=== PATIENT | female | born 1960 | race Caucasian/White ===

== ENCOUNTER 2020-03-15 08:58 | Outpatient (REF) | payer BC, SELFPAY ==
--- NOTE | 2020-03-15 09:03 | MM_ITS ---
EXAMINATION: MM SCREENING DIGITAL BREAST TOMOSYNTHESIS, BILATERAL CLINICAL INFORMATION: Screening. Asymptomatic. The lifetime risk of breast cancer based on the Tyrer-Cuzick Model is 7%. COMPARISON: Mammography: 03/10/2019, 03/08/2018 TECHNIQUE: Digital breast tomosynthesis is performed in both the craniocaudal and mediolateral oblique views along with computer-aided detection (CAD). Synthesized 2D images are generated from the tomosynthesis. Additional exaggerated left CC view is provided. FINDINGS: The breasts are heterogeneously dense, which may obscure small masses (ACR BI-RADS breast composition Category c). There are no significant masses, abnormal calcifications, or other abnormalities. No significant changes. MM/MM tomosynthesis screening BI IMPRESSION: No mammographic evidence of malignancy. ASSESSMENT: BI-RADS 1: Negative RECOMMENDATION: Routine annual mammography screening. This patient's information was entered into a reminder system with a target due date for their next mammogram.
== END 2020-03-15 08:59 | disposition home or self-care (01) ==
LOC: HO.MAMMO 08:58
PROVIDERS: PCP Internal Medicine; Visit Provider Internal Medicine
DX: Z12.31 Encounter for screening mammogram for malignant neoplasm of breast (principal)
CPT/HCPCS: 77063; 77067

== ENCOUNTER 2021-03-18 07:57 | Outpatient (REF) | payer BC, SELFPAY ==
--- NOTE | ~2021-03-18 | MM_ITS ---
EXAMINATION: MM SCREENING DIGITAL BREAST TOMOSYNTHESIS, BILATERAL CLINICAL INFORMATION: Screening. Asymptomatic. The lifetime risk of breast cancer based on the Tyrer-Cuzick Model is 8%. COMPARISON: Mammography: 03/15/2020, 03/10/2019, 03/08/2018, 02/11/2017 TECHNIQUE: Digital breast tomosynthesis is performed in both the craniocaudal and mediolateral oblique views along with computer-aided detection (CAD). Synthesized 2D images are generated from the tomosynthesis. FINDINGS: The breasts are heterogeneously dense, which may obscure small masses (ACR BI-RADS breast composition Category c). Parenchymal pattern is similar to prior studies. There is no developing density or interval mass or architectural abnormality. There are punctate round calcifications mid 12:00 left breast similar to prior studies. The axillary and skin contours are unremarkable. MM/MM tomosynthesis screening BI IMPRESSION: No significant changes from prior exams. ASSESSMENT: BI-RADS 2: Benign RECOMMENDATION: Routine annual mammography screening. This patient's information was entered into a reminder system with a target due date for their next mammogram.
== END 2021-03-18 07:58 | disposition home or self-care (01) ==
LOC: HO.MAMMO 07:57
PROVIDERS: PCP Internal Medicine; Visit Provider Internal Medicine
DX: Z12.31 Encounter for screening mammogram for malignant neoplasm of breast (principal)
CPT/HCPCS: 77063; 77067

== ENCOUNTER 2021-11-12 06:06 | Outpatient (REF) | payer BC, SELFPAY ==
[2021-11-12 06:14] LABS: MANUAL DIFF FLAG NO
[2021-11-12 07:27] LABS: Basophils Absolute Auto 0.1 X10*3/uL (0.0-0.2); Basophils Percent Auto 1.4 % (0-2); Eosinophils Absolute Auto 0.3 X10*3/uL (0.0-0.4); Eosinophils Percent Auto 5.1 % (0-4); Hematocrit 43.9 % (37.0-47.0); Hemoglobin 14.3 g/dl (12.0-16.0); Imm Gran Abs Auto 0.01 X10*3/uL (0.00-0.03); Imm Gran Pct Auto 0.2 % (0.0-0.4); Lymphocytes Absolute Auto 2.1 X10*3/uL (1.2-4.9); Lymphocytes Percent Auto 36.6 % (20-40); Mean Corpuscular HGB Conc 32.6 g/dl (31.0-35.0); Mean Corpuscular Hemoglobin 28.9 pg (27.0-33.0); Mean Corpuscular Volume 88.9 fL (80.0-98.0); Mean Platelet Volume 9.8 fL (9.4-12.3); Monocytes Absolute Auto 0.6 X10*3/uL (0.1-1.2); Monocytes Percent Auto 9.9 % (2-11); Neutrophils Absolute Auto 2.6 x10*3/uL (2.0-8.3); Neutrophils Percent Auto 46.8 % (45-73); Platelet Count 220 X10*3/uL (160-400); Red Blood Count 4.94 X10*6/uL (4.20-5.50); Red Cell Distribution Width 13.1 % (11.0-16.0); White Blood Count 5.7 X10*3/uL (4.8-10.8)
[2021-11-12 08:03] LABS: Alanine Aminotransferase 27 U/L (0-31); Albumin Level 4.5 g/dL (3.5-5.0); Alkaline Phosphatase 53 U/L (39-117); Anion Gap 12 (12-20); Aspartate Amino Transferase 17 U/L (5-31); Bilirubin Total 0.8 mg/dL (0.0-1.0); Blood Urea Nitrogen 19 mg/dL (9-16); Calcium 9.5 mg/dL (8.4-10.2); Carbon Dioxide 26 mmol/L (22-29); Chloride 107 mmol/L (96-108); Cholesterol 241 mg/dL; Estimated Glomerular Filt Rate > 60; Glucose Random 95 mg/dL (60-115); HDL Cholesterol 93 mg/dL; LDL Cholesterol Calculated 134 mg/dl; Potassium 4.1 mmol/L (3.3-5.1); Sodium 141 mmol/L (135-145); Total Protein 7.3 g/dL (6.5-8.0); Triglycerides 70 mg/dL
[2021-11-12 08:21] LABS: Thyroid Stimulating Hormone 1.02 uIU/mL (0.32-4.0); Vitamin D 25-OH Total 43.8 ng/mL (>30)
== END 2021-11-12 06:07 | disposition home or self-care (01) ==
LOC: HO.LAB 06:06
PROVIDERS: PCP Internal Medicine; Visit Provider Internal Medicine
DX: E78.00 Pure hypercholesterolemia, unspecified (principal); E55.9 Vitamin D deficiency, unspecified
CPT/HCPCS: 36415; 80053; 80061; 82306; 84443; 85025

== ENCOUNTER 2022-03-31 07:18 | Outpatient (REF) | payer BC, SELFPAY ==
--- NOTE | ~2022-03-31 | MM_ITS ---
EXAMINATION: MM SCREENING DIGITAL BREAST TOMOSYNTHESIS, BILATERAL CLINICAL INFORMATION: Screening. Asymptomatic. The lifetime risk of breast cancer based on the Tyrer-Cuzick Model is 5%. COMPARISON: Mammography: 03/18/2021, 03/15/2020, 03/10/2019, 03/08/2018, 02/11/2017 TECHNIQUE: Digital breast tomosynthesis is performed in both the craniocaudal and mediolateral oblique views along with computer-aided detection (CAD). Synthesized 2D images are generated from the tomosynthesis. FINDINGS: The breasts are heterogeneously dense, which may obscure small masses (ACR BI-RADS breast composition Category c). There are no significant masses, abnormal calcifications, or other abnormalities. There are scattered shifting fibroglandular parenchymal densities related to variation in positioning. No architectural abnormality. The axilla and skin contours are unremarkable. No significant changes. MM/MM tomosynthesis screening BI IMPRESSION: No mammographic evidence of malignancy. ASSESSMENT: BI-RADS 2: Benign RECOMMENDATION: Routine annual mammography screening. This patient's information was entered into a reminder system with a target due date for their next mammogram.
== END 2022-03-31 07:19 | disposition home or self-care (01) ==
LOC: HO.MAMMO 07:18
PROVIDERS: PCP Internal Medicine; Visit Provider Internal Medicine
DX: Z12.31 Encounter for screening mammogram for malignant neoplasm of breast (principal)
CPT/HCPCS: 77063; 77067

== ENCOUNTER 2023-04-02 07:18 | Outpatient (REF) | payer BC, SELFPAY ==
--- NOTE | ~2023-04-02 | MM_ITS ---
EXAMINATION: MM SCREENING DIGITAL BREAST TOMOSYNTHESIS, BILATERAL CLINICAL INFORMATION: Screening. Asymptomatic. COMPARISON: Mammography: 03/31/2022, 03/18/2021, 03/15/2020, 03/10/2019, 03/08/2018, 02/11/2017 TECHNIQUE: Digital breast tomosynthesis is performed in both the craniocaudal and mediolateral oblique views along with computer-aided detection (CAD). Synthesized 2D images are generated from the tomosynthesis. FINDINGS: The breasts are heterogeneously dense, which may obscure small masses (ACR BI-RADS breast composition Category c). There are punctate loosely scattered extremely fine calcifications in the 12:00 left breast, unchanged from prior exams and benign. There are no suspicious masses, suspicious grouped calcifications, or areas of architectural distortion in either breast. The parenchymal pattern is stable from prior exams. MM/MM tomosynthesis screening BI IMPRESSION: No mammographic evidence of malignancy. ASSESSMENT: BI-RADS BI-RADS 2 - Benign Findings RECOMMENDATION: Routine annual mammography screening. 1 year F/U This examination should not preclude the clinical evaluation of a suspicious palpable abnormality. This patient's information was entered into a reminder system with a target due date for their next mammogram.
== END 2023-04-02 07:19 | disposition home or self-care (01) ==
LOC: HO.MAMMO 07:18
PROVIDERS: PCP Internal Medicine; Visit Provider Internal Medicine
DX: Z12.31 Encounter for screening mammogram for malignant neoplasm of breast (principal)
CPT/HCPCS: 77063; 77067

== ENCOUNTER → 2023-04-02 07:30 | Outpatient (BNV) | payer BC, SELFPAY | PROVIDERS: PCP Internal Medicine; Visit Provider Radiology Diagnostic Radiology | DX: Z12.31 Encounter for screening mammogram for malignant neoplasm of breast (principal) | CPT/HCPCS: 77063; 77067 ==

== ENCOUNTER 2023-10-05 08:37 | Outpatient (AMB) | payer BC, SELFPAY ==
--- NOTE | 2023-10-05 08:48 | AM.OFFWIN_ITS ---
Intake Vital Signs 10/05/23 08:59 Height 5 ft 7 in Weight 123 lb 4 oz BMI 19.3 BP 110/64 Blood Pressure Location Lt brachial Position Sitting Respiration 14 Pulse 79 Pulse Source Pulse Oximeter Temp 97.9 F Temp Source Oral Pulse Oximetry (%) 98 Oxygen Delivery Method Room Air Intake Visit Reasons: Scabies Intake Note: Scabies. Spots on wrist, upper arm, abdomen. Patient Tobacco Use Status: Former Tobacco user Allergies No Known Allergies [No Known Allergies*] Allergy (Verified 10/05/23 08:58) Do you need a note to return to daycare/school/sports/work: No HPI Scabies HPI Details 63 y/o female presents today with compla ints of a rash on her wrist, upper arm, abdomen. Pt notes symptoms at night worsens. She denies anyone in her household with a rash. She reports it is itchy. HPI Comments History of Present Illness Details Documentation assistance for Antonio Sarkar MD, was provided by Nemesio Bhagat, Rib Stiffener And Heel Dipper on 10/05/2023 at 10:02 AM EST. I, Dr. Sarkar, have read, observed, and verified documentation. COUNTS INCLUDE 234 BEDS AT THE [facility] Social History Patient Tobacco Use Status: Former Tobacco user Review of Systems Const Denies chills, Denies fatigue, Denies fever(s), Denies headache(s) and Denies weakness ENT Denies dizziness and Denies headache(s) Card Denies dyspnea Resp Denies cough, Denies dyspnea, Denies wheezing and Denies other (shortness of breath) Musc Denies numbness and Denies tingling Neuro Denies dizziness, Denies headache(s), Denies numbness, Denies tingling and Denies weakness Psych Denies anxiety and Denies depression Endo Denies fatigue Aller/Immun Denies wheezing Physical Exam Vital Signs: Last Vital Signs Temp 97.9 F 10/05/23 08:59 Pulse 79 10/05/23 08:59 Resp 14 10/05/23 08:59 BP 110/64 10/05/23 08:59 Pulse Ox 98 10/05/23 08:59 Oxygen Delivery Method Room Air 10/05/23 08:59 BMI result Body Mass Index 19.3 Const General: well developed; No acute distress Nutritional Appearance: well nourished Orientation/consciousness: patient oriented x3 HEENT Head: Yes normocephalic and Yes atraumatic Eyes General: appearance normal, both eyes and all related structures Pupils: Equal, round and reactive pupils present EOM: EOMs intact bilaterally Resp Effort & Inspection: normal respiratory effort Neuro General: patient oriented x3 and gait normal Cranial nerves: Yes Equal, round and reactive pupils present Psych Affect: normal affect Assessment & Plan Assessment & Plan (1) Rash: Code(s): R21 - Rash and other nonspecific skin eruption Plan: Rash?on?anterior?wrists?and?between?fingers?and?on?hands Appears?consistent?with?scabies Sent?a?script?for?permethrin Script?for?steroid?cream?for?itch Call?or?return?to?office?if?not?improving?or?if?worsens. Medications: New permethrin 1% (Lice Killing (permethrin)) 60 mL topical ONCE 1 day 59 mL 1RF betamethasone valerate 0.1% 1 appl topical DAILY 14 days PRN 60 grams 0RF skin irritation Coding Level of Care Code New Pt Level 3 (84507) Diagnoses Rash R21
[2023-10-05 08:59] VITALS: BP 110/64; PULSE 79; RESP 14; TEMP 36.6; O2SAT 98; BMI 19.3
== END 2023-10-05 10:10 | disposition home or self-care (01) ==
PROVIDERS: PCP Internal Medicine; Visit Provider Family Medicine
DX: R21 Rash and other nonspecific skin eruption (principal)
CPT/HCPCS: 99203

== ENCOUNTER 2024-04-07 07:16 | Outpatient (REF) | payer BC, SELFPAY | END 2024-04-07 07:17 | disposition home or self-care (01) | LOC: HO.MAMMO 07:16 | PROVIDERS: PCP Internal Medicine; Visit Provider Internal Medicine | DX: Z12.31 Encounter for screening mammogram for malignant neoplasm of breast (principal) | CPT/HCPCS: 77063; 77067 ==

== ENCOUNTER → 2024-04-07 07:30 | Outpatient (BNV) | payer BC, SELFPAY | PROVIDERS: PCP Internal Medicine; Visit Provider Internal Medicine | DX: Z12.31 Encounter for screening mammogram for malignant neoplasm of breast (principal) | CPT/HCPCS: 77063; 77067 ==

== ENCOUNTER 2025-01-04 06:05 | Outpatient (REF) | payer BC, SELFPAY ==
--- OUTSIDE RECORDS SUMMARY | 2024-12-23 10:00 | XMS_ITS ---
Author Organization [facility] Address [address] [place] [address] Care Team Providers Care Strategic Analyst Name Role Phone Linwood Hudson MD Primary Care Provider Gustavo El Unavailable [phone] Allergies No Known Allergies REASON FOR VISIT Patient presents today for a colon screening Immunizations Vaccine Route Administration Date Status Comme nts Influenza Unknown 12/23/2024 Refused Social History Tobacco Use: Social History Observation Description Date Details (start date - stop date) Never Smoker NA - NA Tobacco Control (Standard) Question Answer Notes Tobacco use: Nonsmoker AUDIT-C (Standard) Question Answer Notes Did you have a drink contain ing alcohol in the past year? Yes How often did you have a dri nk containing alcohol in the past year? 2 to 4 times a month (2 points) How many drinks did you have on a typical day when you were drinking in the past year? 1 or 2 drinks (0 point) How often did you have six o r more drinks on one occasion in the past year? Never (0 point) Points 2 Interpretation Negative Problems Problem Type SNOMED Code ICD Code Onset Dates Problem Status W/U Status Risk Notes Problem Colon cancer screening (826783539) Colon cancer screening (Z12.11) Active confirmed Problem History of adenomatous polyp of colon (209834529) History of adenomatous polyp of colon (Z86.0101) Active confirmed Problem Preprocedural examination (447081639394892) Preprocedural examination (Z01.818) Active confirmed Vital Signs Temperature 97.7 degrees Fahrenheit 12/24/19 25 Blood pressure systolic 001 mm Hg 12/24/19 25 Blood pressure diastolic 01 mm Hg 08/29/2 025 Height 67 in 12/23/2024 Weight 122.4 lbs 12/23/2024 BMI 19.17 kg/m2 12/23/2024 Procedures Procedure Date Ordered Date Performed Result Body Sit e COLONOSCOPY 12/23/2024 N/A Encounters Encounter Location Date Provider Diagnosis [facility] [address] [place] [address] 12/23/2024 Gustavo Gonzalez Colon cancer screeni ng Z12.11 ; History of adenomatous polyp of colon Z86.0101 and Preprocedural examination Z01.818 Assessments Encounter Date Diagnosis (ICD Code) Assessment Notes Treatment Notes Treatment Clinical Notes Section Notes 12/23/2024 Colon cancer screening (ICD-10 - Z12.11) Overall, Vane appears well and is not having any new or worrisome GI complaints. I did recommend a follow-up colonoscopy for further screening purposes given her age, good clinical appearance, her history of tubular adenomas of the colon, her significant family history of 2 first-degree relatives with colorectal cancer, and her last colonoscopy being done over 5 years ago. Full consent has been obtained from her for the colonoscopy, including risks of bleeding and perforation. The procedure will be done with monitored anesthesia care. Vane was comfortable with this plan. Thank you again for allowing me to participate in Vane's care. I shall continue to keep you advised of her progress.. 12/23/2024 History of adenomatous polyp of colon (ICD-10 - Z86.0101) Overall, Vane appears well and is not having any new or worrisome GI complaints. I did recommend a follow-up colonoscopy for further screening purposes given her age, good clinical appearance, her history of tubular adenomas of the colon, her significant family history of 2 first-degree relatives with colorectal cancer, and her last colonoscopy being done over 5 years ago. Full consent has been obtained from her for the colonoscopy, including risks of bleeding and perforation. The procedure will be done with monitored anesthesia care. Vane was comfortable with this plan. Thank you again for allowing me to participate in Vane's care. I shall continue to keep you advised of her progress.. 12/23/2024 Preprocedural examination (ICD-10 - Z01.818) Overall, Vane appears well and is not having any new or worrisome GI complaints. I did recommend a follow-up colonoscopy for further screening purposes given her age, good clinical appearance, her history of tubular adenomas of the colon, her significant family history of 2 first-degree relatives with colorectal cancer, and her last colonoscopy being done over 5 years ago. Full consent has been obtained from her for the colonoscopy, including risks of bleeding and perforation. The procedure will be done with monitored anesthesia care. Vane was comfortable with this plan. Thank you again for allowing me to participate in Vane's care. I shall continue to keep you advised of her progress.. Plan Of Treatment Pending Test Test Name Order Date COLONOSCOPY 12/23/2024 Next Appt Details Provider Name:Gustavo Gonzalez , 04/14/2025 09:00:00 AM, [address] [place] [address], [place] [address], [place], [address], Progress Notes * HAMDESIRE TDOB: [birth year] (64 yo F)Acc No.[id number]:12/23/2024 Progress Notes Patient: Augustus RHONDADESIRE Provider: Isac Gonzalez MD :1960 A ge:64 Y S ex:Female Date:12/23/2024 Address:[address] [place], [place] [id number] Pcp:Linwood Hudson MD Subjective: * Chief Complaints: * 1 . Patient presents today for a colon screening. * HPI: i ncontinence: I saw Vane (she goes by her middle name) in the office today for evaluation of her personal history of adenomatous colon polyps and need for colorectal cancer screening. As you know, Vane is a healthy 64-year-old female who presently feels very well. She enjoys a good appetite and denies any significant heartburn or dysphagia. Her bowel movements have been regular and without any signs of bleeding. She denies any abdominal pain, jaundice, nor unintentional weight loss. Her family history is notable for a mother and sister having had colon cancer. Vane describes having had [address] Fleming. She reports that her first colonoscopy in 2009 was negative and a follow-up exam in 2019 revealed at least 1 adenomatous polyp. * Medical History: D enies [place],DM,CVA,Lung disease,renal disease, Colonoscopy 04/2019 with adenomas removed by Dr. Fleming; She also describes a negative screening colonoscopy in approximately 2009.. * Surgical History: t onsilectomy , pilonidal cyst . * Family History: F ather: . M other: , Colon cancer in her 50's, diagnosed with Colon cancer, Heart disease. Sister had colon cancer at age 75. * Social History: T obacco Use: T obacco Control (Standard) T obacco use: N onsmoker. M iscellaneous: M arital status: . 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 D rug/Alcohol: A GABRIEL-C (Standard) D id you have a drink containing alcohol in the past year? Y es,?How often did you have a drink containing alcohol in the past year? 2 to 4 times a month (2 points), H ow many drinks did you have on a typical day when you were drinking in the past year? 1 or 2 drinks (0 point), H ow often did you have six or more drinks on one occasion in the past year? N ever (0 point), P oints 2 , I nterpretation N egative. * Medications: N one * Allergies: N .K.D.A. Objective: * Vitals: W t:122.4lbs, Ht:67in, BMI:19.17Index, BP:001/01mm Hg, Temp:97.7, Ht-cm: 170.18, Wt-k.52. Assessment: * Assessment: 1. C olon cancer screening - Z12.11 (Primary) 2 . H istory of adenomatous polyp of colon - Z86.0101 3 . P reprocedural examination - Z01.818 ? Overall, Vane appears wel l and is not having any new or worrisome GI complaints. I did recommend a follow-up colonoscopy for further screening purposes given her age, good clinical appearance, her history of tubular adenomas of the colon, her significant family history of 2 first-degree relatives with colorectal cancer, and her last colonoscopy being done over 5 years ago. Full consent has been obtained from her for the colonoscopy, including risks of bleeding and perforation. The procedure will be done with monitored anesthesia care. Vane was comfortable with this plan. Thank you again for allowing me to participate in Vane's care. I shall continue to keep you advised of her progress.. Plan: * Treatment: 2.?History of adenomatous polyp of colon?Procedure: COLONOSCOPY* with MACsched for 04/14/25 a t 9:00 ammiralax * Immunizations: Influenza (Not administered - Refused: Patient decision) * Procedure Codes: 4 5378 DIAGNOSTIC COLONOSCOPY * * The named appointment provid er may or may not be the originator of this progress note, and it is not deemed complete until electronically signed by the appointment provider. Sign off status: Pending * Provider: Isac Gonzalez MD Date: 0 12/23/2024 Generated for Bailee petty/Keny/Florentinransmitting on: 0 01/04/2025 06:09 AM EDT History and Physical Notes * HPI (History of Present Illness) Category Sub-Category Detail Notes Category Not es incontinence I saw Vane (she goes by her middle name) in the office today for evaluation of her personal history of adenomatous colon polyps and need for colorectal cancer screening. As you know, Vane is a healthy 64-year-old female who presently feels very well. She enjoys a good appetite and denies any significant heartburn or dysphagia. Her bowel movements have been regular and without any signs of bleeding. She denies any abdominal pain, jaundice, nor unintentional weight loss. Her family history is notable for a mother and sister having had colon cancer. Vane describes having had [address] Fleming. She reports that her first colonoscopy in 2009 was negative and a follow-up exam in 2019 revealed at least 1 adenomatous polyp.
--- OUTSIDE RECORDS SUMMARY | 2025-01-04 06:09 | XMS_ITS | Patient Health Record ---
Author Organization [facility] Address [address] [place] [address] Care Team Providers Care Dye Tub Tender Name Role Phone Linwood Hudson MD Primary Care Provider Gustavo El Unavailable [phone] Allergies No Known Allergies Reason For Referral No Information Immunizations Vaccine Route Administration Date Status Comme [...] Status Risk Notes Problem Colon cancer screening (400996468) Colon cancer screening (Z12.11) Active confirmed Problem Preprocedural examination (055495171551966) Preprocedural examination (Z01.818) Active confirmed Problem History of adenomatous polyp of colon (953183254) History of adenomatous polyp of colon (Z86.0101) Active confirmed Vital Signs Temperature 97.7 degrees Fahrenheit 12/23/2024 Blood pressure diastolic 01 mm Hg 12/23/2024 Height 67 in 12/23/2024 Blood pressure systolic 001 mm Hg 12/23/2024 Weight 122.4 lbs 12/23/2024 BMI 19.17 kg/m2 12/23/2024 Procedures Procedure Date Ordered Date Performed Result Body Sit e COLONOSCOPY 12/23/2024 N/A Encounters Encounter Location Date Provider Diagnosis [facility] [address] [place] [address] 12/23/2024 Gustavo Gonzalez Colon cancer screeni ng [...] Provider Name:Gustavo Gonzalez , 04/14/2025 09:00:00 AM, [address] [place] [address], [address], [place], [address], Insurance Providers Payer Name Payer Address Payer Phone Subscriber Number Group Number Insured Name Patient Relationship to Insured Coverage Start Date Coverage End Date [facility] [address] [place] [address] [id number] [employer] Self - patient is the insured Medical (General) History Medical History History ICD Code Denies [place],DM,CVA,Lung disease,renal dise ase Colonoscopy 04/2019 with florian omas removed by Dr. Fleming; She also describes a negative screening colonoscopy in approximately 2009. Surgical History Surgery Date(Month/Year) pilonidal cyst tonsilectomy
--- OUTSIDE RECORDS SUMMARY | 2025-01-04 06:10 | XMS_ITS | Clinical Summary ---
Author Organization [facility] Address [address] [place] [address] Phone Care Team Providers Care Event Specialist Product Demonstrator Name Role Phone Arabella Fleming MD Unavailable [phone] Ashley Limon PA-C Primary Care Provider [phone] Allergies Active Allergy Reactions Criticality Noted Date Comments Chlorpheniramine-Acetaminophen Unknown 09/28 Medications No known medications Active Problems Problem Noted Date Diagnosed Date Routine general medical exam ination at a [facility] care facility 08/30/2024 Assessment & Plan (08/30/2024 3:48 PM EDT): Will obtain routine lab work including CMP, lipid panel, thyroid panel. Up-to-date with mammogram. Due for colonoscopy, GI referral to Dr. Gonzalez in [facility]. Pure hypercholesterolemia 08/30/2024 Assessment & Plan (08/30/2024 3:49 PM EDT): History of hypercholesterolemia managed with lifestyle changes. Not on any medications. Will obtain fasting lipid panel. Pap smear of cervix declined 08/30/2024 Assessment & Plan (08/30/2024 3:49 PM EDT): Patient states that she no longer wants to have Pap smears done. Her last one was in 2016 which was NILM, HPV negative. She states she understands the risks of not doing cervical cancer screening. Vitamin D deficiency 08/30/2024 Assessment & Plan (08/30/2024 3:49 PM EDT): History of vitamin D deficiency not on any supplementation. She prefers to get her vitamin D through her sunshine alone. Resolved Problems Problem Noted Date Diagnosed Date Resolved Date Herpes zoster without complication 05/18/2019 08/30/2024 Assessment & Plan (05/18/2019 1:03 PM EST): T10 and T12 right-sided dermatomes positive for shingles, no superinfection noted, nighttime postherpetic neuralgia mild present, treat with Lidoderm 5% patches on at night for 12 hours off during the daytime. Watch for adhesive allergies. Patient still within therapeutic window, start valacyclovir 1 g 3 times daily for 7 days. Follow-up as needed. Immunizations Immunization Administration Dates Next Due COVID-19 (Pre-02/16) Pfizer Vaccine, mRNA, PF ,07/16/2020 Td (adult) 5 Lf Tetanus Toxoid, PF, Adsorbed 11/2021 Tdap 01/18/2010 Zoster recombinant 01/02/2020 Zoster unspecified formulation 09/30/2019 Family History Medical History Relation Comments Cerebral aneurysm Brother Other Father Unknown cause of Colon cancer Mother in her 50s Bladder Cancer Sister 1 Colon cancer Sister 2 Relation Status Comments Brother Father Mother Sister 1 Sister 2 Social History Tobacco Use Types Packs/Day Years Used Date Smoking Tobacco: Former Cigarettes 0.5 20 1 972 - 1992 Smokeless Tobacco: Never Tobacco Cessation:Counseling Given: Not Answered Alcohol Use Standard Drinks/Week Comments Yes 1 (1 standard drink = 0.6 oz pur e alcohol) Weekly Child or Family Care Answer Date Record ed Do you have problems with on e of the following making it difficult for you to work, study, or receive health care? No 08/26/2024 Education Answer Date Recorded Are you interested in help w ith more adult education (for example, completing high school, GED, job training, learning the [place] language, technical skills, or developing parenting skills)? No 08/26/2024 Are you concerned about learning? Not on file 08/26/2024 No 08/26/2024 Yes 08/26/2024 Food Answer Date Recorded Within the past 6 months we worried whether our food would run out before we got money to buy more. I choose not to answer 08/26/2024 Within the past 6 months the food we bought just didn't last and we didn't have enough money to get more. I choose not to answer 08/26/2024 Residential Stability Answer Date Recor ded What is your housing situation today? I choose n ot to answer 08/26/2024 How many times have you move d in the past 12 months? I choose not to answer 08/26/2024 Paying for Meds Answer Date Recorded Do you have trouble paying for medicines? I radha se not to answer 08/26/2024 Paying Utility Bills Answer Date Record ed Do you have trouble paying y our heating or electricity bill? I choose not to answer 08/26/2024 Transportation Answer Date Recorded Has the lack of transportati on kept you from medical appointments or from getting medications? I choose not to answer 08/26/2024 Unemployment Answer Date Recorded Are you currently unemployed or working on a part-time or temporary basis, and looking for work? No 11/01/2021 Digital Access Answer Date Recorded No 08/26/2024 Yes 08/26/2024 Do you have reliable internet access at home? Ye s 08/26/2024 Do you have a device (e.g., phone, tablet, computer) with a working camera? Yes 08/26/2024 Intimate Partner Violence Answer Date R ecorded Denied Basic Needs Not on file 08/26/2024 In the past 12 months have y ou been in a relationship with a person who hurts, threatens, or tries to control you? No 08/26/2024 Worried food would run out Not on file 08/26 In the past 12 months have y ou been in a relationship with a person who hurts, threatens, or tries to control you? No 08/26/2024 Comments No Sex and Gender Information Value Date Recorded Sex Assigned at Female 11/01/2021 2:54 PM EDT Legal Sex Female 9:48 PM EDT Gender Identity Female 11/01/2021 2:54 PM EDT Sexual Orientation Straight 11/01/2021 2: 54 PM EDT Last Filed Vital Signs Vital Sign Reading Time Taken Comments Blood Pressure 104/70 08/30/2024 3:19 PM EDT Pulse 63 08/30/2024 3:19 PM EDT Temperature 36 C (96.8 F) 08/30/2024 3:19 PM EDT Respiratory Rate 13 08/30/2024 3:19 PM EDT Oxygen Saturation 97% 08/30/2024 3:19 PM EDT Inhaled Oxygen Concentration - - Weight 54.8 kg (120 lb 12.8 oz) 08/30/2024 3:19 PM EDT Height 170.2 cm (5' 7.01 ) 08/30/2024 3:19 PM ED T Body Mass Index 18.92 08/30/2024 3:19 PM EDT Plan of Treatment Health Maintenance Due Date Last Done Comments HEPATITIS C SCREENING 1978 HIV ONE-TIME SCREENING (18-65 YEARS) 1978 COLOGUARD 2005 FIT TEST 2005 FOBT 2005 SIGMOIDOSCOPY 2005 VIRTUAL COLONOSCOPY 2005 PNEUMOCOCCAL VACCINES (50+ years) (1 of 1 - PCV) 2010 PAP SMEAR 10/04/2018 10/05/2015, 09/28/2015 ZOSTER VACCINES (2 of 2) 02/27/2020 01/02/2020, 08/2019 LIPID PANEL 12/17/2022 12/17/2017 INFLUENZA VACCINE (#1) 2024 DEPRESSION SCREENING 08/26/2025 08/26/2024 MAMMOGRAM 04/07/2026 04/07/2024, 10/2022, 03/31/2022, Additional history exists COLONOSCOPY 05/05/2029 05/05/2019, 12/2019, 05/05/2019, Additional history exists COLORECTAL CANCER SCREENING 05/05/2029 Adult Td,Tdap Booster 11/02/2031 11/01/2021, 010 RSV VACCINE (1 - 1-dose 75+ series) 2035 COVID-19 VACCINE Completed 01/28/2024, , 04/11/2022, Additional history exists SMOKING STATUS SCREENING (Once After 26 Yrs) Completed 08/30/2024 HEPATITIS A VACCINES Aged Out No long er eligible based on patient's age to complete this topic HIB VACCINES Aged Out No longer eligi ble based on patient's age to complete this topic MENINGOCOCCAL VACCINES (ACWY) Aged Out No longer eligible based on patient's age to complete this topic MENINGOCOCCAL VACCINES (B) Aged Out N o longer eligible based on patient's age to complete this topic Medical Devices Not on file Procedures Procedure Name Priority Date/Time Associated Diagnosis Comments HM MAMMOGRAPHY Routine 04/07/2024 2:29 PM EST HM COLONOSCOPY FOR RESULT ENTRY ONLY Routine 05/05/2019 OUTSIDE LDL Routine 12/17/2017 HM PAP SMEAR FOR RESULT ENTRY ONLY Routine 09/28/2015 from Last 3 Months or Most Recently Relevant to Health Maintenance Results * MAMMOGRAPHY FOR RESULT ENTRY ONLY (04/07/2024 2:29 PM EST) Historical Provider HEALTH MAINTENANCE Final Result * COLONOSCOPY FOR RESULT ENTRY ONLY (05/05/2019) Colonoscopy tubular adenoma Historical Provider HEALTH MAINTENANCE Final Result * Outside LDL (12/17/2017) [facility] Provider LAB BLOOD ORDERABLES Tania l Result * PAP SMEAR FOR RESULT ENTRY ONLY (09/28/2015) Pap smear NILM, HPV negative Historical Provider HEALTH MAINTENANCE Final Result from Last 3 Months or Most Recently Relevant to Health Maintenance Insurance [facility] Care Teams Event Specialist Product Demonstrator Relationship Specialty Start Date End Date Ashley Limon PA-C [address] [place] [address] [email or web address] PCP - General Physician Cnmt 08/30/24 Arabella Fleming MD General Surgery 05/17/19 Additional Source Comments The information contained in this document represents components of the legal health record. It is not the complete legal health record.[facility]
[2025-01-04 08:02] LABS: Alanine Aminotransferase 32 U/L (0-31); Albumin Level 4.5 g/dL (3.5-5.0); Alkaline Phosphatase 48 U/L (39-117); Anion Gap 13 (12-20); Aspartate Amino Transferase 19 U/L (5-31); Blood Urea Nitrogen 18 mg/dL (9-16); Calcium 9.7 mg/dL (8.4-10.2); Carbon Dioxide 28 mmol/L (22-29); Chloride 107 mmol/L (96-108); Cholesterol 234 mg/dL (<200); Estimated Glomerular Filt Rate > 60; HDL Cholesterol 95 mg/dL (>40); Potassium 4.5 mmol/L (3.3-5.1); Sodium 143 mmol/L (135-145); Total Protein 7.2 g/dL (6.5-8.0); Triglycerides 70 mg/dL (<150)
== END 2025-01-04 06:06 | disposition home or self-care (01) ==
LOC: HO.LAB 06:05
PROVIDERS: PCP Internal Medicine
DX: Z00.00 Encounter for general adult medical examination without abnormal findings (principal); E78.00 Pure hypercholesterolemia, unspecified
CPT/HCPCS: 36415; 80053; 80061; 84443

== ENCOUNTER 2025-04-13 07:26 | Outpatient (REF) | payer MEDICARE, BC, SELFPAY | END 2025-04-13 07:27 | LOC: HO.MAMMO 07:26 | PROVIDERS: PCP Internal Medicine; Visit Provider Internal Medicine | DX: Z12.31 Encounter for screening mammogram for malignant neoplasm of breast (principal) | CPT/HCPCS: 77063; 77067 ==

== ENCOUNTER → 2025-04-13 07:45 | Outpatient (BNV) | payer MEDICARE, BC, SELFPAY | PROVIDERS: PCP Internal Medicine; Visit Provider Radiology Body Imaging | DX: Z12.31 Encounter for screening mammogram for malignant neoplasm of breast (principal) | CPT/HCPCS: 77063; 77067 ==

== ENCOUNTER 2025-04-14 07:51 | Day surgery (SDC) | payer MEDICARE, BC, SELFPAY ==
--- OUTSIDE RECORDS SUMMARY | 2025-03-16 08:06 | XMS_ITS | Clinical Summary ---
Author Organization [facility] Address [address] [place] [address] Phone Care Team Providers Care Kiss Machine Operator Name Role Phone Arabella Fleming MD Unavailable [phone] Ashley Limon PA-C Primary Care Provider [phone] Allergies Active Allergy Reactions Criticality Noted Date Comments Chlorpheniramine-Acetaminophen Unknown 09/28 Medications No known medications Active Problems Problem Noted Date Diagnosed Date Routine general medical exam ination at a [facility] care facility 08/30/2024 Assessment & Plan (08/30/2024 3:48 PM EDT): Will obtain routine lab work including CMP, lipid panel, thyroid panel. Up-to-date with mammogram. Due for colonoscopy, GI referral to Dr. Gonzalez in [facility]. Pure hypercholesterolemia 08/30/2024 Assessment & Plan (08/30/2024 [...] daily for 7 days. Follow-up as needed. Encounters Date Type Department Care Team Description 01/05/2025 Telephone [facility] Internal Medicine [address] [place] [address] Kirsty Varela RN Results 01/05/2025 Orders Only [facility] Internal Medicine [address] [place] [address] Provider, MD Keyona from Last 3 Months Immunizations Immunization Administration Dates Next Due COVID-19 [...] high school, GED, job training, learning the [place] language, technical skills, or developing parenting skills)? [...] PANEL 12/17/2022 12/17/2017 INFLUENZA VACCINE (#1) 2024 COVID-19 VACCINE ( season) 2024 01/28/2024, 01/15/2023, 04/11/2022, Additional history exists DEPRESSION SCREENING 08/26/2025 08/26/2024 MAMMOGRAM 04/07/2026 04/07/2024, 10/2022, 03/31/2022, Additional history exists COLONOSCOPY 05/05/2029 05/05/2019, 12/2019, 05/05/2019, Additional history exists COLORECTAL CANCER SCREENING 05/05/2029 Adult Td,Tdap Booster 11/02/2031 11/01/2021, 010 RSV VACCINE (1 - 1-dose 75+ series) 2035 SMOKING STATUS SCREENING (Once After 26 Yrs) [...] Procedure Name Priority Date/Time Associated Diagnosis Comments OUTSIDE LAB Routine 01/04/2025 2:33 PM EDT MAMMOGRAPHY Routine 04/07/2024 2:29 PM EST HM COLONOSCOPY FOR RESULT ENTRY ONLY Routine 05/05/2019 OUTSIDE LDL Routine 12/17/2017 HM PAP SMEAR FOR RESULT ENTRY ONLY Routine 09/28/2015 from Last 3 Months or Most Recently Relevant to Health Maintenance Results * Outside Lab (01/04/2025 2:33 PM EDT) [facility] Provider LAB BLOOD BKR ORDERABLES Final Result * MAMMOGRAPHY FOR RESULT ENTRY ONLY (04/07/2024 2:29 PM EST) Historical Provider HEALTH MAINTENANCE Final Result * COLONOSCOPY FOR RESULT ENTRY ONLY (05/05/2019) Colonoscopy tubular adenoma Historical Provider HEALTH MAINTENANCE Final Result * Outside LDL (12/17/2017) [facility] Provider LAB BLOOD ORDERABLES Tania l Result * PAP SMEAR FOR RESULT ENTRY ONLY (09/28/2015) Pap smear NILM, HPV negative Historical Provider HEALTH MAINTENANCE Final Result from Last 3 Months or Most Recently Relevant to Health Maintenance Insurance [facility] [employer] [facility] [employer] [facility] [employer] [facility] Care Teams Kiss Machine Operator Relationship Specialty Start Date End Date Ashley Limon PA-C [address] [place] [id number] [email or web address] PCP - General Physician Visual Effects Artist 08/30/24 Arabella Fleming MD General Surgery 05/17/19 Additional Source Comments The information contained in this document represents components of the legal health record. It is not the complete legal health record.[facility]
--- OUTSIDE RECORDS SUMMARY | 2025-03-16 08:06 | XMS_ITS | Patient Health Record ---
Author Organization [facility] Address [address] [place] [address] Care Team Providers Care Nurse Aide Name Role Phone Linwood Hudson MD Primary Care Provider Gustavo El Unavailable [phone] Allergies No Known Allergies Reason For Referral No Information Immunizations Vaccine Route Administration Date Status Comme nts Influenza Unknown 12/23/2024 Refused Social History Tobacco Use: Social History Observation Description Date Details (start date - stop date) Never Smoker NA - NA Social History Drug/Alcohol: Social Info Question Answer Notes AUDIT-C (Standard) Did you have a drink containing alcohol in the past year? Yes How often did you have a drink containing alcohol in the past year? 2 to 4 times a month (2 points) How many drinks did you have on a typical day when you were drinking in the past year? 1 or 2 drinks (0 point) How often did you have six or more drinks on one occasion in the past year? 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 [employer] Problems Problem Type SNOMED Code ICD Code Onset Dates Problem Status W/U Status Risk Notes Problem Colon cancer screening (653419676) Colon cancer screening (Z12.11) Active confirmed Problem Preprocedural examination (766625361292181) Preprocedural examination (Z01.818) Active confirmed Problem History of adenomatous polyp of colon (607462667) History of adenomatous polyp of colon (Z86.0101) Active confirmed Vital Signs Temperature 97.7 degrees Fahrenheit 12/23/2024 Blood pressure diastolic 01 mm Hg 12/23/2024 Height 67 in 12/23/2024 Blood pressure systolic 001 mm Hg 12/23/2024 Weight 122.4 lbs 12/23/2024 BMI 19.17 kg/m2 12/23/2024 Procedures Procedure Date Ordered Date Performed Result Body Sit e COLONOSCOPY 12/23/2024 N/A Encounters Encounter Location Date Provider Diagnosis [facility] [address] [place] [address] 12/23/2024 Gustavo Gonzalez Colon cancer screeni ng Z12.11 ; Preprocedural examination Z01.818 and History of adenomatous polyp of colon Z86.0101 Assessments Encounter Date Diagnosis (ICD Code) Assessment [...] again for allowing me to participate in aVne's care. I shall continue to keep you [...] Provider Name:Gustavo Gonzalez , 04/14/2025 09:00:00 AM, [address] [place] [address], [address], [place], [address], Insurance Providers Payer Name Payer Address Payer Phone Subscriber Number Group Number Insured Name Patient Relationship to Insured Coverage Start Date Coverage End Date [facility] [address] [place] [address] [id number] [employer] Self - patient is the insured MEDICARE OF [place] [address] [facility] [place] [address] [id number] [employer] Self - patient is the insured 5 Medical (General) History Medical History History ICD Code Denies DC,DM,CVA,Lung disease,renal dise ase Colonoscopy 04/2019 with florian omas removed by Dr. Fleming; She also describes a negative screening colonoscopy in approximately 2009. Surgical History Surgery Date(Month/Year) tonsilectomy pilonidal cyst
[2025-04-12 12:37] VITALS: BMI 19.2
--- NOTE | 2025-04-12 13:20 | P.CONAN_ITS ---
Documented by User: Hannah Joseph NP 04/12/25 13:21 HPI - Anesthesia Eval Consult details Narrative: 65yo F for Colonoscopy PMFSH Active Problems Active Problems: All Active Problems Rash (Acute) Past Medical History Medical History No pertinent past medical history Surgical History Surgical History S/P pilonidal cyst excision Hx of tonsillectomy H/O colonoscopy Social History Social History Household Members: Spouse Patient Tobacco Use Status: Former Tobacco user Use of substances other than those prescribed or required for medical reasons: No Are you DNR?: No Advance Directives: No Advance Directives Information Provided: Yes Meds Allergies Allergy/AdvReac Type Severity Reaction Status Date / Time No Known Allergies (No Known Allergy Verified 04/14/25 08:28 Allergies*) Home Medications ?Medication ?Instructions ?Recorded ?Confirmed ?Last Taken ?Type No Known Home Meds 04/12/25 04/14/25 Un known History Exam Height,Weight and Vital Signs: Height 5 ft 7 in Weight 55.52 kg Assessment and Plan Assessment Anesthesia Assessment: Chart Reviewed Documented by User: Santhosh Nuñez MD 04/14/25 08:41 PMFSH Past Medical History Medical History No pertinent past medical history Functional capacity: independent ambulation Family History Family history of problems with anesthesia: No Surgical History Surgical History S/P pilonidal cyst excision Hx of tonsillectomy H/O colonoscopy History of Problems with Anesthesia: No Social History Social History Household Members: Spouse Patient Tobacco Use Status: Former Tobacco user Use of substances other than those prescribed or required for medical reasons: No Are you DNR?: No Advance Directives: No Advance Directives Information Provided: Yes Meds Allergies Allergy/AdvReac Type Severity Reaction Status Date / Time No Known Allergies (No Known Allergy Verified 04/14/25 08:28 Allergies*) Home Medications ?Medication ?Instructions ?Recorded ?Confirmed ?Last Taken ?Type No Known Home Meds 04/12/25 04/14/25 Un known History Exam Exam Date and Time: 04/14/2025 Airway TM Dist: >3cm Heart: normal Lungs: normal Other: normal Assessment and Plan Final Anesthetic Review Family History of Problems with Anesthesia: No History of Problems with Anesthesia: No NPO: Yes ASA Class: I Final Preanesthetic Review: No Changes in Pt Med Stat, Meds/Allgs Chart Reviewed, Consent Obtained/Reviewed and Anes Risks/Benef Reviewed Patient Risk: Low Procedure Risk: Low
[2025-04-14 08:30] VITALS: BMI 17.8
[2025-04-14 08:42] VITALS: BP 95/45; PULSE 64; RESP 14; TEMP 37; O2SAT 100
[2025-04-14] MEDS: Lactated Ringers 1,000 ML 100 ML IVCONT (08:53)
[2025-04-14 10:07] VITALS: BP 94/57; PULSE 70; RESP 16; TEMP 36.7; O2SAT 100
--- NOTE | 2025-04-14 10:13 | PM.OP ---
Brief Operative Note Date of Service: 04/14/25 Pre-op diagnosis: Screening Post-op diagnosis: other (Diverticulosis) Procedure: Colonoscopy to the cecum Surgeon: Gustavo Gonzalez MD Anesthesia: MAC Was an Motorman/Woman used for this Procedure?: No Estimated blood loss (mL): 0 Pathology: none sent Condition: stable Disposition: PACU
[2025-04-14 10:22] VITALS: BP 96/49; PULSE 70; RESP 20; TEMP 36.3; O2SAT 97
--- NOTE | 2025-04-14 10:25 | OP_ITS ---
DATE OF SERVICE: 04/14/2025 SURGEON: Gustavo Gonzalez MD INDICATIONS: The patient presents for evaluation of colorectal cancer screening and personal history of colon polyps. Full consent has been obtained from her for this, including risks of bleeding and perforation. PREOPERATIVE DIAGNOSIS: POSTOPERATIVE DIAGNOSIS: Colorectal cancer screening, personal history of colon polyps, diverticulosis, and internal hemorrhoids. PROCEDURE PERFORMED: Colonoscopy to the cecum. ESTIMATED BLOOD LOSS: COMPLICATIONS: ANESTHESIA: Medication used; monitored anesthesia care. ASSISTANTS: SPECIMENS: PREOPERATIVE DIAGNOSES: Colorectal cancer screening, personal history of colon polyps. DESCRIPTION OF PROCEDURE: The patient was placed in the left lateral decubitus position. The digital rectal exam revealed no abnormalities. The Olympus video pediatric colonoscope was entered into the rectum and advanced easily to the cecum. Once in the cecum, I did identify normal-appearing cecal pouch with appendiceal orifice and a normal-appearing ileocecal valve. The entire cecum and ileocecal valve appeared normal. The scope was slowly withdrawn assessing all mucosal surfaces carefully. Preparation was excellent. I did not visualize any sign of polyps, colitis, nor angiodysplasia. There was a mild amount of sigmoid diverticulosis. In the rectum, scope was retroflexed visualizing small internal hemorrhoids, but no other pathology. The rectal mucosa appeared normal. The scope was straightened and withdrawn from the patient. She tolerated the procedure well and was returned to recovery area in stable condition. IMPRESSION: 1. Mild diverticulosis. 2. Small internal hemorrhoids. PLAN: I would recommend a repeat colonoscopy in 5 years for further screening given her previous history of tubular adenomas and family history of colon cancer. She will otherwise see me as needed. Gustavo Gonzalez MD RMW/MODL / [id number] MTDD
== END 2025-04-14 10:59 | disposition home or self-care (01) ==
PROVIDERS: PCP Internal Medicine; Visit Provider Internal Medicine
PROC: 0DJD8ZZ Inspection of Lower Intestinal Tract, Via Natural or Artificial Opening Endoscopic (ICD-10-PCS; CPT 45378; principal; 2025-04-14 09:00)
DX: Z12.11 Encounter for screening for malignant neoplasm of colon (principal); Z86.0101 Personal history of adenomatous and serrated colon polyps; K57.30 Diverticulosis of large intestine without perforation or abscess without bleeding; K64.8 Other hemorrhoids; Z80.0 Family history of malignant neoplasm of digestive organs
CPT/HCPCS: G0105; J2003; J2704; J3010